=== PATIENT | female | born 1975 | race Caucasian/White ===

== ENCOUNTER 2022-03-24 10:26 | Emergency (ER) | payer BC, SELFPAY ==
[2022-03-24] MEDS ORDERED: Ketorolac Tromethamine 30 MG/ML VIAL ONE (11:05)
== END 2022-03-24 11:13 | disposition home or self-care (01) ==
LOC: BURERS 10:26
DX: B34.9 Viral infection, unspecified (principal)
CPT/HCPCS: 87081; 87430; 87804; 96372; 99283; J1885